=== PATIENT | female | born 1935 | race Hispanic/Latino ===

== ENCOUNTER 2017-10-29 11:26 | Outpatient (CLI) | payer MEDICARE ==
--- NOTE | 2017-10-29 12:15 | RAD ---
RIGHT SHOULDER THREE VIEWS: History: Right shoulder pain. Contusion. FINDINGS/IMPRESSION: No fracture, dislocation, or bony disruption is seen. There are degenerative changes at the acromiocl avicular joint. POS: KATHI
== END 2017-10-29 11:27 | disposition home or self-care (01) ==
LOC: NAV RAD 11:26
PROVIDERS: ATTEND Internal Medicine
DX: S40.021A Contusion of right upper arm, initial encounter (principal); M19.011 Primary osteoarthritis, right shoulder

== ENCOUNTER 2020-06-30 12:43 | Outpatient (CLI) | payer MEDICARE ==
--- NOTE | 2020-06-30 13:49 | RAD ---
LEFT HIP 2 VIEWS: Date: 06/30/2020 HISTORY: Injury from a fall. FINDINGS: Again noted are right pubic fractures. Bone demineralization. Left hip and femur appear intact. IMPRESSION: Right pubic fractures. Bone demineralization. No left-sided pelvic or left femoral fracture seen. POS: OFF
--- NOTE | 2020-06-30 13:49 | RAD ---
AP PELVIS 1 VIEW: Date: 06/30/2020 HISTORY: Minimally displaced right-sided pubic and pubic rami fractures. There is some irregularity of the rig ht lateral sacral ala, possibly representing associated vertical right sacral ala fracture. The remai nder of the pelvis is unremarkable. IMPRESSION: 1. Displaced comminuted right pubis superior and inferior fractures. Evidence for some irregularity of the right lateral sacrum concerning for the possibility of a vertically oriented sacral fracture. 2. SI joint osteoarthrosis. 3. No evidence for acute femoral fracture. POS: OFF
--- NOTE | 2020-06-30 13:49 | RAD ---
RIGHT HIP 2 VIEWS: Date: 06/30/2020 HISTORY: Injury from a fall. FINDINGS: Displaced fractures of the right superior and inferior pubis and adjacent pubic rami. Diffuse bone de mineralization. No evidence for acute femoral fracture. IMPRESSION: Minimally displaced irregular fractures of the right pubis and adjacent pubic ramus. No evidence for femoral fracture. Bone demineralization. CODE T. POS: OFF
== END 2020-06-30 12:44 | disposition home or self-care (01) ==
LOC: NAV RAD 12:43
PROVIDERS: ATTEND Internal Medicine
DX: G89.11 Acute pain due to trauma (principal); S32.591A Other specified fracture of right pubis, initial encounter for closed fracture; M47.818 Spondylosis without myelopathy or radiculopathy, sacral and sacrococcygeal region; M81.0 Age-related osteoporosis without current pathological fracture
CPT/HCPCS: 72170

== ENCOUNTER 2022-08-22 10:23 | Outpatient (CLI) | payer MEDICARE, OTHER | END 2022-08-22 10:24 | disposition home or self-care (01) | LOC: NAV RAD 10:23 | PROVIDERS: ATTEND Family Medicine | DX: M25.511 Pain in right shoulder (principal) ==

== ENCOUNTER 2023-10-23 13:47 | Emergency (ER) | payer MEDICARE, OTHER ==
[~2023-10-23 13:47] MED LIST: Iopamidol 370 76% 100 ML VIAL ONE
[2023-10-23] MEDS ORDERED: Ondansetron PF 4 MG/2 ML Vial ONE (14:48)
[2023-10-23 14:59] LABS: #Basophils 0.1 thou/uL (0.0-0.2); #Lymphocytes 0.9 thou/uL (1.20-3.40); #Monocytes 1.7 thou/uL (0.11-0.59); #Neutrophils 24.9 thou/uL (1.40-6.50); %Basophils 0.4 % (0.0-1.0); %Lymphocytes 3.1 % (21.0-51.0); %Monocytes 6.3 % (0.0-10.0); %Neutrophils 90.1 % (42.0-75.0); Hematocrit 40.7 % (36.0-47.0); Hemoglobin 13.9 g/dL (12.0-16.0); Mean Corpuscular HGB CONC 34.2 g/dL (32.0-36.0); Mean Corpuscular Hemoglobin 32.3 pg (27.0-31.0); Mean Corpuscular Volume 94.4 fl (78.0-98.0); Mean Platelet Volume 7.7 fL (7.4-10.4); Platelet Count 185 10x3/uL (130-400); RBC Distribution Width 12.7 % (11.5-14.5); Red Blood Cell (RBC) Count 4.31 mill/uL (4.20-5.40); White Blood Cell (WBC) Count 27.7 10x3/uL (4.8-10.8)
[2023-10-23 15:02] LABS: Bilirubin Moderate (Negative); Blood, Urine Moderate (Negative); Clarity Clear (Clear); Glucose, Urine (Dipstick) Negative (Negative); Ketone, Urine Negative (Negative); Leukocyte Small (Negative); Nitrite Negative (Negative); Protein, Urine (Dipstick) Trace mg/dL (Neg-Trace); Specific Gravity, Urine 1.015 (1.005-1.030); Urobilinogen > or = 8.0 mg/dL (Less than 2)
[2023-10-23 15:04] LABS: Bacteria/HPF 4+ HPF (None Seen); CAUTI Indications for Culture Dysuria,urgency,freq; RBC/HPF 21-50 HPF (0-3); Urine Culture Reflex No No
[2023-10-23 15:07] LABS: ALT (SGPT) 163 U/L (8-55); AST (SGOT) 203 U/L (5-34); Albumin 3.5 g/dL (3.4-4.8); Alkaline Phosphatase 413 U/L (40-110); Anion Gap 19 mmol/L (10-20); BUN (Urea Nitrogen) 19 mg/dL (9.8-20.1); Bilirubin, Total 4.1 mg/dL (0.2-1.2); Calc. Creatinine Clearance 0 mL/min (70-130); Calcium 8.9 mg/dL (7.8-10.44); Carbon Dioxide 21 mmol/L (23-31); Chloride 92 mmol/L (98-107); Estimated GFR 61; Globulin 3.5 g/dL (2.4-3.5); Glucose 148 mg/dL (83-110); Potassium 4.4 mmol/L (3.5-5.1); Sodium 128 mmol/L (136-145)
[2023-10-23 15:23] LABS: Critical Call Chem-Lactate NUR.OS1@1523
[2023-10-23 15:58] LABS: Bilirubin Small (Negative); Blood, Urine Small (Negative); Clarity Clear (Clear); Glucose, Urine (Dipstick) Negative (Negative); Ketone, Urine Negative (Negative); Leukocyte Small (Negative); Nitrite Positive (Negative); Protein, Urine (Dipstick) Trace mg/dL (Neg-Trace); Specific Gravity, Urine 1.015 (1.005-1.030); Urobilinogen > or = 8.0 mg/dL (Less than 2)
[2023-10-23 15:59] LABS: Bacteria/HPF 4+ HPF (None Seen); CAUTI Indications for Culture Dysuria,urgency,freq; Squamous Epithelial 0-3 HPF (0-3); Transitional Epithelial 0-3 HPF (None Seen); Urine Culture Reflex No No
[2023-10-23] MEDS ORDERED: Pantoprazole 40 MG VIAL ONE (16:05)
[2023-10-23] MEDS ORDERED: Piperacillin/Tazobactam 4.5 GM VIAL ONE (16:05)
[2023-10-23 16:38] LABS: SARS-CoV-2 NAA Rapid Test Not Detected (NotDetected)
[2023-10-23] MEDS ORDERED: Vancomycin 1 GM VIAL ONE (17:44)
[2023-10-23] MEDS ORDERED: Vancomycin HCl 500 MG VIAL ONE (17:44)
[2023-10-23 18:08] LABS: Lactic Acid 2.8 mmol/L (0.5-2.2)
[2023-10-23 23:18] LABS: HBCM Index 0.06 S/CO (0-0.79); Hep A IgM AB Non-Reactive S/CO (NonReactive); Hep B Surf Ag Non-Reactive S/CO (NonReactive); Hep C IgG Ab Non-Reactive S/CO (NonReactive); Hep C Index 0.07 S/CO (0-0.79); Hepatitis B Core IgM Abs Non-Reactive S/CO (NonReactive)
== END 2023-10-23 18:50 | disposition short-term general hospital (02) ==
LOC: NAV ERS 13:47
DX: A41.9 Sepsis, unspecified organism (principal); Q61.3 Polycystic kidney, unspecified; J18.9 Pneumonia, unspecified organism; I11.0 Hypertensive heart disease with heart failure; I50.9 Heart failure, unspecified; R09.02 Hypoxemia; R94.5 Abnormal results of liver function studies; I48.91 Unspecified atrial fibrillation; K21.9 Gastro-esophageal reflux disease without esophagitis; Z79.899 Other long term (current) drug therapy; Z79.51 Long term (current) use of inhaled steroids; Z79.01 Long term (current) use of anticoagulants
CPT/HCPCS: 0241U; 71045; 74177; 80053; 80074; 81001; 83605; 83880; 84443; 85025; 87040; 87077; 87086; 87186; 96361; 96374; 96375; 36415-59; C9113; J2405; J2543; J3370; Q9967